=== PATIENT | male | born 1950 | race Caucasian/White ===

== ENCOUNTER 2016-11-15 10:13 | Emergency (ER) | payer MEDICARE, OTHER ==
--- NOTE | ~2016-11-15 | ER ---
PATIENT'S NAME: CONCHA [facility] AGE: 66 Y [address] ROOM: [place] [id number] LOCATION: [facility] ADMIT DATE: 11/15/2016 ER/Outpatient Report DISCHARGE DATE: 11/15/2016 FAMILY PHYSICIAN: Aguilar Green MD ATTENDING PHYSICIAN: Jack Castillo TIME OF ARRIVAL: 1013 hours. TIME OF EVALUATION: 1013 hours. CHIEF COMPLAINT: Left knee pain. HISTORY OF PRESENT ILLNESS: The patient is a 66-year-old male, who presents to the emergency department today with a chief complaint of left knee pain. He reports he was hiking, climbing down the same the embankment when he hyperextended his left knee. He was unable to walk afterwards. He reports he does not have any pain now, 0/10 in severity. He reports he feels very weak in his knee though. He did hear a popping and snapping sensation. PAST MEDICAL HISTORY: Insulin-dependent diabetes, hypertension, and GERD. PAST SURGICAL HISTORY: None. SOCIAL HISTORY: The patient denies any tobacco, alcohol, or illicit drug use. ALLERGIES: NO KNOWN DRUG ALLERGIES. MEDICATIONS: Please see list. PRIMARY CARE DOCTOR: Aguilar Green MD. REVIEW OF SYSTEMS: All systems are reviewed by myself are negative with the exception of those discussed in HPI and past medical history. PATIENT'S NAME: CONCHA [facility]INO[facility] AGE: 66 Y [address] ROOM: [place] [id number] LOCATION: [facility] ADMIT DATE: 11/15/2016 ER/Outpatient Report DISCHARGE DATE: 11/15/2016 FAMILY PHYSICIAN: Aguilar Green MD ATTENDING PHYSICIAN: Jack Castillo PHYSICAL EXAMINATION: VITAL SIGNS: Weight 101.5 kg, blood pressure 167/77, pulse 87, respiratory rate 16, temperature 98.2, and oxygen saturation 96% on room air. GENERAL: The patient is a 66-year-old male, appears stated age, in no acute distress. HEENT: Normocephalic, atraumatic. Pupils are equal, round, and reactive to light. NECK: Supple. There is no nuchal rigidity. CARDIOVASCULAR: Regular rate and rhythm. No murmurs, rubs, or gallops. LUNGS: Clear to auscultation bilaterally. No wheezes, rales, or rhonchi. ABDOMEN: Soft, nontender, and nondistended. No rebound, rigidity, or guarding. MUSCULOSKELETAL: The patient does appear to have some increased laxity of the left knee, primarily with MCL. He is neurovascularly intact. No bony tenderness to palpation. SKIN: Warm and dry. LABS AND X-RAYS: Three view x-ray of the left knee is obtained, interpreted by myself shows no acute fracture or dislocation. IMPRESSION: 1. Acute left knee strain. 2. Initial visit. EMERGENCY DEPARTMENT COURSE: The patient was brought back to the examination room. Seen and evaluated by myself. X-rays are obtained as described above. The patient does not wish to have any pain medicine at this time. I have discussed results of the x-ray with the patient. The patient is placed in a knee immobilizer. He was placed on crutches. I have asked that he is nonweightbearing until he follows up with the orthopedic surgeon. We have given the number for Dr. Avila. I have discussed return to care instructions including worsening symptoms or any other concerns to return to the emergency department as soon as possible. The patient is agreeable without further questions at this time. DISPOSITION: The patient was discharged home in good condition. DO SAMMIE JUÁREZ/nila PATIENT'S NAME: CONCHA [facility] AGE: 66 Y [address] ROOM: [place] [address] LOCATION: [facility] ADMIT DATE: 11/15/2016 ER/Outpatient Report DISCHARGE DATE: 11/15/2016 FAMILY PHYSICIAN: Aguilar Green MD ATTENDING PHYSICIAN: Jack Castillo /[id number] d: [birth year] t: 11/19/162032, OUTPATIENT REPORT
[~2016-11-15 10:13] MED LIST: ASPIRIN LO-DOSE81 MG PO; BENICAR HCT 401 EAC1 PO; COREG25 MG PO; CPAP INH; GLUCOPHAGE1000 MG PO; NORVASC5 MG PO; PROTONIX40 MG PO; RESTASIS1 EACH OPHTH; T:SLIM1 EACH SUB-Q; VITAMIN D1000 UNIT PO; VITAMIN D31000 UNI2 PO
== END 2016-11-15 11:45 | disposition disaster alternative care site (69) ==
LOC: GACC 10:13
PROC: 2W3MX1Z Immobilization of Left Lower Extremity using Splint (ICD-10-PCS; principal; 2016-11-15)
DX: S86.812A Strain of other muscle(s) and tendon(s) at lower leg level, left leg, initial encounter (principal); E11.9 Type 2 diabetes mellitus without complications; I10 Essential (primary) hypertension; Z79.4 Long term (current) use of insulin; Z79.82 Long term (current) use of aspirin; Z79.899 Other long term (current) drug therapy; K21.9 Gastro-esophageal reflux disease without esophagitis; X50.9XXA Other and unspecified overexertion or strenuous movements or postures, initial encounter; Y93.01 Activity, walking, marching and hiking; Y99.8 Other external cause status

== ENCOUNTER → 2016-11-26 | Outpatient (CLI) | payer MEDICARE, OTHER | END | disposition disaster alternative care site (69) | LOC: GRAD 08:04 | DX: M25.562 Pain in left knee (principal); S83.512A Sprain of anterior cruciate ligament of left knee, initial encounter; S83.412A Sprain of medial collateral ligament of left knee, initial encounter; S83.232A Complex tear of medial meniscus, current injury, left knee, initial encounter; M25.462 Effusion, left knee; S80.02XA Contusion of left knee, initial encounter; X58.XXXA Exposure to other specified factors, initial encounter ==